=== PATIENT | male | born 1985 | race Caucasian/White ===

== ENCOUNTER 2019-03-14 14:51 | Emergency (ER) | payer OTHER ==
[~2019-03-14] VITALS: Ht 180.3 cm; Wt 63.5 kg
[2019-03-14 15:35] VITALS: BP_SYST 103
--- NOTE | 2019-03-14 16:24 | NUR ---
Patient to ER bed 08 to gown for evaluation. Side rails up. Report given to CHARLEY Gale
--- NOTE | 2019-03-14 16:32 | NUR ---
Patient brought in comlaining of bump of on the posterior aspect of the right forearm x 2 days. Patient reports that he uses heroin and meth yesterday. Patient reports that he does not want to drain it. Denies any pain at this time. No other complaints/injuries per patient or as noted. Will continue to monitor.
--- NOTE | 2019-03-14 16:43 | NUR ---
RODRIGUEZ Kaur examining patient.
--- NOTE | 2019-03-14 17:01 | NUR ---
Patient does not wish to proceed with medical care recommended by NAV Kaur. Patient given information related to possible complications, up to and including , which could occur as a result of leaving hospital at this time. Patient verbalizes understanding of risks involved leaving against medical advice. Patient has signed AMA form.
== END 2019-03-14 17:01 | disposition left against medical advice (07) ==
LOC: SED 14:51
DX: L02.413 Cutaneous abscess of right upper limb (principal); F11.90 Opioid use, unspecified, uncomplicated; F15.90 Other stimulant use, unspecified, uncomplicated; F17.290 Nicotine dependence, other tobacco product, uncomplicated; Z71.6 Tobacco abuse counseling
CPT/HCPCS: 99283

== ENCOUNTER 2019-11-19 15:24 | Emergency (ER) | payer OTHER, SELFPAY ==
[~2019-11-19] VITALS: Ht 180.3 cm; Wt 68.0 kg
[2019-11-19 16:50] VITALS: BP_SYST 108
--- NOTE | 2019-11-19 21:30 | NUR ---
RECEIVED AND IN ROOM, CALM, ALERT, RESP UNLABORED
--- NOTE | 2019-11-19 22:45 | NUR ---
ALERT, CALM,RESP UNLABORED, PT HERE FOR LT ARM SWELLING AND PAIN S/P IVDU PT ADMITS TO IVDU AND C/O AND INFECTION.
--- NOTE | 2019-11-19 23:22 | NUR ---
DR MACKENZIE AT BEDSIDE
[2019-11-19] MEDS ORDERED: cefTRIAXone 1 GM in LIDOCAINE 1%, 20 ML MDV 2.1 ML IM ONE (23:30)
[2019-11-19] MEDS ORDERED: KETOROLAC TROMETHAMINE 30 MG VIAL IM ONE (23:30)
[2019-11-20 01:00] VITALS: BP_SYST 108
--- NOTE | 2019-11-20 01:00 | NUR ---
Patient given written and verbal discharge instructions and verbalizes understanding. DR. AVRIL FRIAS MD discussed with patient the results and treatment provided. Patient in stable condition. ID arm band removed. Rx of LEVAQUIN AND IBUPROFEN given. Patient educated on pain management and to follow up with PMD. Pain Scale 2/10. Opportunity for questions provided and answered. Medication side effect fact sheet provided.
== END 2019-11-20 01:00 | disposition home or self-care (01) ==
LOC: SED 15:24
DX: L03.114 Cellulitis of left upper limb (principal); F15.90 Other stimulant use, unspecified, uncomplicated
CPT/HCPCS: 96372; 99284; J0696; J1885; J2001

== ENCOUNTER 2020-10-16 02:55 | Emergency (ER) | payer MEDICAID, OTHER, SELFPAY ==
[~2020-10-16] VITALS: Ht 180.3 cm; Wt 63.5 kg
[2020-10-16 03:00] VITALS: BP_SYST 137
[2020-10-16 05:34] VITALS: BP_SYST 137
== END 2020-10-16 04:44 | disposition home or self-care (01) ==
LOC: SED 02:55
DX: L03.211 Cellulitis of face (principal)
CPT/HCPCS: 99281; 99283

== ENCOUNTER 2020-10-18 14:22 | Emergency (ER) | payer MEDICAID ==
[~2020-10-18] VITALS: Ht 172.7 cm; Wt 63.5 kg
[2020-10-18 14:27] VITALS: BP_SYST 138
[2020-10-18 15:38] LABS: BASOPHILS % (AUTO) 0.4 % (0.0-2.0); EOSINOPHILS # (AUTO) 0.1 K/uL (0.0-0.4); EOSINOPHILS % (AUTO) 0.7 % (0.0-4.0); HEMATOCRIT 40.6 % (36-54); HEMOGLOBIN 14.2 g/dL (14.0-18.0); LYMPHOCYTES # (AUTO) 1.4 K/uL (1.0-5.5); LYMPHOCYTES % (AUTO) 14.4 % (20.5-51.5); MEAN CORPUSCULAR HEMOGLOBIN 31 pg (27-31); MEAN CORPUSCULAR HGB CONC 35 % (32-36); MEAN CORPUSCULAR VOLUME 88 fL (79.0-98.0); MONOCYTES # (AUTO) 0.4 K/uL (0.0-1.0); MONOCYTES % (AUTO) 4.4 % (1.7-9.3); NEUTROPHILS # (AUTO) 7.9 K/uL (1.8-7.7); NEUTROPHILS % (AUTO) 80.1 % (40.0-70.0); PLATELET COUNT (AUTO) 311 K/uL (130-430); RED BLOOD CELL COUNT(AUTO) 4.62 MIL/uL (4.2-6.2); RED CELL DISTRIBUTION WIDTH 12.6 % (9.0-15.0); WHITE BLOOD COUNT (AUTO) 9.9 K/uL (4.8-10.8)
[2020-10-18 15:42] LABS: CALCIUM 10.3 mg/dL (8.4-11.0); CREATININE 1.17 mg/dL (0.55-1.30); POTASSIUM 4.2 mmol/L (3.5-5.1)
[2020-10-18 15:45] LABS: INR 1.2 (0.80-1.20)
[2020-10-18 15:48] LABS: TOTAL BILIRUBIN 0.3 mg/dL (0.0-1.0)
[2020-10-18 15:55] LABS: C-REACTIVE PROTEIN QUANT 5.5 mg/dL (0-0.5)
[2020-10-18] MEDS ORDERED: IBUP-1971 PO (16:13)
[2020-10-18] MEDS ORDERED: IBUP800T54 PO (16:13)
[2020-10-18] MEDS ORDERED: CLINDAMYCIN HCL 150 MG CAPSULE PO ONE (16:15)
[2020-10-18 16:25] VITALS: BP_SYST 138
[2020-10-18] MEDS ORDERED: CLIN300C12 PO (16:48)
== END 2020-10-18 16:25 | disposition home or self-care (01) ==
LOC: SED 14:22
DX: L03.211 Cellulitis of face (principal); Z79.899 Other long term (current) drug therapy
CPT/HCPCS: 36415; 80053; 83605; 85025; 85610-TC; 85730-TC; 86140; 99283